=== PATIENT | female | born 1950 | race American Indian/Alaskan Native ===

== ENCOUNTER 2022-04-08 09:20 | Emergency (ER) | payer MEDICARE ==
[2022-04-08] MEDS ORDERED: KETOROLAC 30 MG/1 ML INJ IV ONE (13:16)
[2022-04-08 13:37] LABS: Basophils % (Auto) 0.5 % (0.0-1.8); Hemoglobin 12.8 gm/dl (10.1-14.3); Lymphocytes # (Auto) 1.8 K/mm3 (1.2-5.4); Lymphocytes % (Auto) 38.7 % (13.4-35.0); Mean Corpuscular HGB Conc 33 % (30-34); Mean Corpuscular Volume 76 fl (79-97); Monocytes # (Auto) 0.3 K/mm3 (0.0-0.8); Monocytes % (Auto) 5.7 % (0.0-7.3); Platelet Count 209 K/mm3 (140-440); Red Blood Count 5.16 M/mm3 (3.65-5.03)
[2022-04-08 13:43] VITALS: BP 187/90
--- NOTE | 2022-04-08 13:59 | XRay Report ---
CHEST 1 VIEW 04/08/2022 1:15 PM INDICATION / CLINICAL INFORMATION: Chest Pain. COMPARISON: None available. FINDINGS: SUPPORT DEVICES: None. HEART / MEDIASTINUM: No significant abnormality. LUNGS / PLEURA: There is a left midlung calcified granuloma. The lungs are otherwise clear. No signif icant pleural effusion. No pneumothorax. ADDITIONAL FINDINGS: No significant additional findings. IMPRESSION: 1. No acute abnormality of the chest. Signer Name: Jesus Presley MD Signed: 04/08/2022 1:54 PM Workstation Name: [id number]
[2022-04-08 14:05] LABS: Alanine Aminotransferase 17 units/L (7-56); BUN/Creatinine Ratio 10; Blood Urea Nitrogen 10 mg/dL (7-17); Calcium 9.2 mg/dL (8.4-10.2); Hemolysis Index 1
--- NOTE | 2022-04-08 15:16 | Emergency Department Report ---
ED Chest Pain HPI - General Chief Complaint: Chest Pain Stated Complaint: CP Time Seen by Provider: 04/08/22 12:59 Source: patient Mode of arrival: Ambulatory Limitations: No Limitations - History of Present Illness Initial Comments: 71-year-old female with a past medical history of CHF and diabetes presents to the hospital complaints of right-sided chest pain for 3 weeks progressively worsening. Pain described as admitted for right-sided aching pain worse with movement and palpation. Has associate shortness of breath. She denies nausea, vomiting, diaphoresis, calf tenderness, leg edema, recent travel, cough, fever history of PE/DVT. Pain is rated 6/10 in intensity and improved with ibuprofen. Patient reports having a stress test in the last 1 to 2 years which was "okay". No history of CABG or cardiac stents. She is compliant with her medication. Patient took 2 aspirins prior to ED arrival today. Patient also reports feeling gas across chest with eating. Severity scale (0 -10): 7 - Related Data Previous Rx's Medication Instructions Recorded Last Taken Type Esomeprazole Magnesium [Nexium 20 mg PO DAILY #30 tab 04/08/22 Unknown Rx 24Hr] Allergies Allergy/AdvReac Type Severity Reaction Status Date / Time No Known Allergies Allergy Verified 04/08/22 09:46 Heart Score - HEART Score History: Slightly suspicious EKG: Non-specific Age: > 65 Risk factors: > 3 risk factors or hx of atherosclerotic disease Troponin: < normal limit HEART Score: 5 - EKG Read Time Time EKG Completed: 09:28 EKG Read Time: 09:32 ED Review of Systems ROS: Stated complaint: CP Other details as noted in HPI Comment: All other systems reviewed and negative ED Past Medical Hx - Past Medical History Hx Hypertension: Yes Hx Heart Attack/AMI: Yes Hx Congestive Heart Failure: Yes Hx Diabetes: Yes Hx Arthritis: Yes - Surgical History Additional Surgical History: c section - Social History Smoking Status: Never Smoker Substance Use Type: None - Medications Home Medications: Home Medications Medication Instructions Recorded Confirmed Last Taken Type Esomeprazole Magnesium [Nexium 20 mg PO DAILY #30 tab 04/08/22 Unknown Rx 24Hr] ED Physical Exam - General Limitations: No Limitations - Other Other exam information: General: No acute distress Head: Atraumatic Eyes: normal appearance ENT: Moist mucous membranes Neck: Normal appearance, no midline tenderness Chest: Clear to auscultation bilaterally, reproducible right lower anterior lateral rib tenderness to palpate CV: Regular rate and rhythm Abdomen: Soft, normal bowel sounds, nontender, nondistended, no rebound or guard ing Back: Normal inspection Extremity: Normal inspection, full range of motion, no calf tenderness or leg Neuro: Alert O x 3, no facial asymmetry, speech clear, no gross motor sensory deficit Psych: Appropriate behavior Skin: No rash ED Course Vital Signs 04/08/22 04/08/22 04/08/22 09:47 13:02 13:16 Temperature 98.9 F Pulse Rate 71 74 77 Respiratory 19 17 18 Rate Blood Pressure 181/96 187/90 187/90 Blood Pressure 181/96 [Left] O2 Sat by Pulse 100 98 99 Oximetry 04/08/22 13:30 Temperature Pulse Rate 79 Respiratory 17 Rate Blood Pressure 187/90 Blood Pressure [Left] O2 Sat by Pulse 99 Oximetry BASSAM score - Bassam Score Age > 65: (1) Yes Aspirin use within the Past 7 Days: (1) Yes 3 or more CAD Risk Factors: (1) Yes 2 or more Angina events in past 24 hrs: (0) No Known CAD with more than 50% Stenosis: (0) No Elevated Cardiac Markers: (0) No ST Deviation Greater than 0.5mm: (0) No BASSAM Score: 3 ED Medical Decision Making - Lab Data Result diagrams: 04/08/22 13:00 04/08/22 13:00 Lab Results 04/08/22 04/08/22 04/08/22 Range/Units 13:00 13:00 13:00 WBC 4.7 (4.5-11.0) K/mm3 RBC 5.16 H (3.65-5.03) M/mm3 Hgb 12.8 (10.1-14.3) gm/dl Hct 39.0 (30.3-42.9) % MCV 76 L (79-97) fl MCH 25 L (28-32) pg MCHC 33 (30-34) % RDW 15.0 (13.2-15.2) % Plt Count 209 (140-440) K/mm3 Lymph % (Auto) 38.7 H (13.4-35.0) % [place] % (Auto) 5.7 (0.0-7.3) % Eos % (Auto) 0.0 (0.0-4.3) % Baso % (Auto) 0.5 (0.0-1.8) % Lymph # (Auto) 1.8 (1.2-5.4) K/mm3 [place] # (Auto) 0.3 (0.0-0.8) K/mm3 Eos # (Auto) 0.0 (0.0-0.4) K/mm3 Baso # (Auto) 0.0 (0.0-0.1) K/mm3 Seg Neutrophils % 55.1 (40.0-70.0) % Seg Neutrophils # 2.6 (1.8-7.7) K/mm3 D-Dimer 273.84 H (0-234) ng/mlDDU Sodium 135 L (137-145) mmol/L Potassium 3.7 (3.6-5.0) mmol/L Chloride 100.7 (98-107) mmol/L Carbon Dioxide 24 (22-30) mmol/L Anion Gap 14 mmol/L BUN 10 (7-17) mg/dL Creatinine 1.0 (0.6-1.2) mg/dL Estimated GFR 55 ml/min BUN/Creatinine Ratio 10 % Glucose 246 H (65-100) mg/dL Calcium 9.2 (8.4-10.2) mg/dL Total Bilirubin 0.40 (0.1-1.2) mg/dL AST 19 (5-40) units/L ALT 17 (7-56) units/L Alkaline Phosphatase 95 (35-129) units/L Troponin T < 0.010 (0.00-0.029) ng/mL Total Protein 7.6 (6.3-8.2) g/dL Albumin 4.0 (3.9-5) g/dL Albumin/Globulin Ratio 1.1 % 04/08/22 Range/Units 16:11 WBC (4.5-11.0) K/mm3 RBC (3.65-5.03) M/mm3 Hgb (10.1-14.3) gm/dl Hct (30.3-42.9) % MCV (79-97) fl MCH (28-32) pg MCHC (30-34) % RDW (13.2-15.2) % Plt Count (140-440) K/mm3 Lymph % (Auto) (13.4-35.0) % [place] % (Auto) (0.0-7.3) % Eos % (Auto) (0.0-4.3) % Baso % (Auto) (0.0-1.8) % Lymph # (Auto) (1.2-5.4) K/mm3 [place] # (Auto) (0.0-0.8) K/mm3 Eos # (Auto) (0.0-0.4) K/mm3 Baso # (Auto) (0.0-0.1) K/mm3 Seg Neutrophils % (40.0-70.0) % Seg Neutrophils # (1.8-7.7) K/mm3 D-Dimer (0-234) ng/mlDDU Sodium (137-145) mmol/L Potassium (3.6-5.0) mmol/L Chloride (98-107) mmol/L Carbon Dioxide (22-30) mmol/L Anion Gap mmol/L BUN (7-17) mg/dL Creatinine (0.6-1.2) mg/dL Estimated GFR ml/min BUN/Creatinine Ratio % Glucose (65-100) mg/dL Calcium (8.4-10.2) mg/dL Total Bilirubin (0.1-1.2) mg/dL AST (5-40) units/L ALT (7-56) units/L Alkaline Phosphatase (35-129) units/L Troponin T < 0.010 (0.00-0.029) ng/mL Total Protein (6.3-8.2) g/dL Albumin (3.9-5) g/dL Albumin/Globulin Ratio % - EKG Data -: EKG Interpreted by N[facility] EKG shows normal: sinus rhythm, ST-T waves (no stemi) Rate: normal - Radiology Data Radiology results: report reviewed CHEST 1 VIEW 04/08/2022 1:15 PM INDICATION / CLINICAL INFORMATION: Chest Pain. COMPARISON: None available. FINDINGS: SUPPORT DEVICES: None. HEART / MEDIASTINUM: No significant abnormality. LUNGS / PLEURA: There is a left midlung calcified granuloma. The lungs are ot herwise clear. No significant pleural effusion. No pneumothorax. ADDITIONAL FINDINGS: No significant additional findings. IMPRESSION: 1. No acute abnormality of the chest. CTA CHEST WITH IV CONTRAST INDICATION: right sided chest pain, CONTRAST: 100 cc Omnipaque 350 IV COMPARISON: Portable chest x-ray today Three-plane MIP reconstructions were produced. All CT scans at this location are performed using CT dose reduction for ALARA by means of automated exposure control. FINDINGS: No significant axillary or chest wall abnormalities are seen. Views of the upper abdomen show fatty infiltration of the liver. Moderate hiatal hernia is seen. No mediastinal or hilar masses are noted. Thorax or pneumomediastinum are seen. No obvious endobronchial lesions are noted. No pleural effusions are seen. A few tiny nodules measuring up to 3 mm are seen in the right upper lobe. Bilateral small areas of probable scarring are seen. Minimal nodule is seen in the periphery of the left lower lobe. Centrally in the left lower lobe a nodule is seen measuring 7 mm just posterior to the medial aspect of the major fissure on image 52 of series 2. This may be semisolid. Tiny peripheral nodule is seen in the lateral left upper lobe and anteriorly in the left upper lobe there is minimal nodularity. No obvious acute pneumonic infiltrates are seen. The aorta shows no aneurysmal dilatation or obvious evidence of dissection. Good opacification of the pulmonary arterial system was achieved. I do not see evidence of pulmonary thromboembolism. Coronary artery calcifications: None IMPRESSION: 1. No evidence of pulmonary thromboembolism. No acute abnormalities are seen. 2. Bilateral pulmonary nodularity. Recommend follow-up as below. 3. Moderate hiatal hernia - Medical Decision Making 71-year-old female presents to the hospital in her right-sided chest wall pain and gas feeling with p.o. intake. Clean and clear she has right-sided reproducible chest wall tenderness on palpation. She does not endorse any left- sided chest pain or ACS symptoms. trop neg x 2. She does not have any DVT symptoms or PE risk factors. Mild elevation in D-dimer noted therefore CT angiogram performed. No signs of pulmonary embolism. Incidental findings of small pulmonary nodules and hiatal hernia. Patient will be treated with PPI due to hiatal hernia and GI symptoms. She is advised to take Tylenol for pain and take Motrin sparingly. CAT scan report will be provided for outpatient follow- up for further monitoring. Patient and at the bedside voiced understanding. - Differential Diagnosis Costochondritis, chest contusion, pneumothorax, pulm embolism, dissection Critical Care Time: No Critical care attestation.: If time is entered above; I have spent that time in minutes in the direct care of this critically ill patient, excluding procedure time. ED Disposition Clinical Impression: Right-sided chest wall pain, Hiatal hernia, Pulmonary nodule Disposition: HOME / SELF CARE / HOMELESS Is pt being admited?: No Does the pt Need Aspirin: No Condition: Stable Instructions: Nonspecific Chest Pain, Adult, Hernia, Adult Additional Instructions: Take the medication as prescribed. He may take Motrin or Tylenol as needed for pain. Follow-up with your doctor or doctor/clinic provided. Return if symptoms worsen as indicated by your discharge instructions. Take the copy of your CAT scan report to your doctor for further management Prescriptions: Esomeprazole Magnesium [Nexium 24Hr] 20 mg PO DAILY #30 tab Referrals: KAYLA GIL MD [Primary Care Provider] - 3-5 Days your, doctor [Other] - 3-5 Days Time of Disposition: 18:45
--- NOTE | 2022-04-08 18:17 | Cat Scan Report ---
CTA CHEST WITH IV CONTRAST INDICATION: right sided chest pain, CONTRAST: 100 cc Omnipaque 350 IV COMPARISON: Portable chest x-ray today Three-plane MIP reconstructions were produced. All CT scans at this location are performed using CT d ose reduction for ALARA by means of automated exposure control. FINDINGS: No significant axillary or chest wall abnormalities are seen. Views of the upper abdomen sh ow fatty infiltration of the liver. Moderate hiatal hernia is seen. No mediastinal or hilar masses ar e noted. Thorax or pneumomediastinum are seen. No obvious endobronchial lesions are noted. No pleural effusions are seen. A few tiny nodules measuring up to 3 mm are seen in the right upper lobe. Bilate ral small areas of probable scarring are seen. Minimal nodule is seen in the periphery of the left lo wer lobe. Centrally in the left lower lobe a nodule is seen measuring 7 mm just posterior to the medi al aspect of the major fissure on image 52 of series 2. This may be semisolid. Tiny peripheral nodule is seen in the lateral left upper lobe and anteriorly in the left upper lobe there is minimal nodula rity. No obvious acute pneumonic infiltrates are seen. The aorta shows no aneurysmal dilatation or obvious evidence of dissection. Good opacification of the pulmonary arterial system was achieved. I do not see evidence of pulmonary thromboembolism. Coronary artery calcifications: None IMPRESSION: 1. No evidence of pulmonary thromboembolism. No acute abnormalities are seen. 2. Bilateral pulmonary nodularity. Recommend follow-up as below. 3. Moderate hiatal hernia INCIDENTAL PULMONARY NODULE RECOMMENDATIONS Solid Nodule size* <6 mm -- Single or Multiple - Low Risk Patient: No routine follow-up - High Risk Patient: Optional CT at 12 months Subsolid Nodule (Part solid) >=6 mm - CT at 3-6 months to confirm persistence. If unchanged and solid component remains <6mm, annual CT s hould be performed for 5 years. Note These recommendations do not apply to lung cancer screening, patients with immunosuppression, o r patients with known primary cancer. Note Newly detected indeterminate nodule in persons 35 years of age or older. Persons under the age of 35 should not receive follow-up unless there is a known primary cancer. Low Risk Patient -- minimal or absent history of smoking and of other known risk factors. High Risk Patient -- history of smoking or of other known risk factors. *Dimensions are average of long and short axes, rounded to the nearest millimeter. Based on 2017 Fleischner Society Guidelines found in Radiology 2017 284:228-243. [email or web address] Signer Name: Todd Glynn MD Signed: 04/08/2022 6:13 PM Workstation Name: [id number]
== END 2022-04-08 19:53 | disposition home or self-care (01) ==
LOC: ED 09:20
DX: R07.89 Other chest pain (principal); K44.9 Diaphragmatic hernia without obstruction or gangrene; R91.1 Solitary pulmonary nodule; I11.0 Hypertensive heart disease with heart failure; I50.9 Heart failure, unspecified; E11.9 Type 2 diabetes mellitus without complications; M19.90 Unspecified osteoarthritis, unspecified site; Z79.899 Other long term (current) drug therapy
CPT/HCPCS: 36415; 71045; 71275; 80053; 84484; 85025; 85379; 93005; 96374; 99284; J1885; Q9967